=== PATIENT | female | born 1980 | race Caucasian/White ===

== ENCOUNTER → 2017-07-07 | Outpatient (CLI) | payer OTHER | LOC: FIMAGING 13:24 | PROVIDERS: ATTEND Advanced Practice Midwife | DX: O09.522 Supervision of elderly multigravida, second trimester (principal); O40.2XX0 Polyhydramnios, second trimester, not applicable or unspecified; Z3A.23 23 weeks gestation of pregnancy ==

== ENCOUNTER → 2017-08-03 | Outpatient (CLI) | payer OTHER | LOC: FIMAGING 14:24 | PROVIDERS: ATTEND Advanced Practice Midwife | DX: O40.2XX0 Polyhydramnios, second trimester, not applicable or unspecified (principal); O09.522 Supervision of elderly multigravida, second trimester; Z3A.27 27 weeks gestation of pregnancy ==

== ENCOUNTER → 2017-09-03 | Outpatient (CLI) | payer OTHER | LOC: FIMAGING 08:24 | PROVIDERS: ATTEND Advanced Practice Midwife | DX: O40.3XX0 Polyhydramnios, third trimester, not applicable or unspecified (principal); O09.523 Supervision of elderly multigravida, third trimester; Z3A.31 31 weeks gestation of pregnancy ==

== ENCOUNTER 2017-11-02 15:31 | Observation (INO) | payer OTHER | END 2017-11-02 17:30 | disposition home or self-care (01) | LOC: FLD 15:31 | PROVIDERS: ADMIT Obstetrics & Gynecology; ATTEND Obstetrics & Gynecology | DX: O36.8330 Maternal care for abnormalities of the fetal heart rate or rhythm, third trimester, not applicable or unspecified (principal); Z3A.40 40 weeks gestation of pregnancy | CPT/HCPCS: G0378 ×2 ==